=== PATIENT | female | born 1995 | race Caucasian/White ===

== ENCOUNTER 2017-09-25 22:43 | Emergency (ER) | payer OTHER ==
[~2017-09-25] VITALS: Ht 154.9 cm; Wt 80.3 kg
[2017-09-25 23:28] VITALS: Ht 154.9 cm; Wt 80.3 kg
[2017-09-26 01:26] VITALS: BP 129/87
== END 2017-09-26 01:26 | disposition home or self-care (01) ==
LOC: ED 22:43
DX: S52.501A Unspecified fracture of the lower end of right radius, initial encounter for closed fracture (principal); W20.8XXA Other cause of strike by thrown, projected or falling object, initial encounter; Y93.66 Activity, soccer; Y92.89 Other specified places as the place of occurrence of the external cause; Y99.8 Other external cause status
CPT/HCPCS: A4570